=== PATIENT | male | born 1930 | race Caucasian/White ===

== ENCOUNTER 2019-01-06 08:51 | Emergency (ER) | payer MEDICARE, BC ==
--- NOTE | 2019-01-06 09:36 | RAD ---
PORTABLE UPRIGHT FRONTAL CHEST RADIOGRAPH: Date: 01/06/19 COMPARISON: None. HISTORY: Fall. FINDINGS: There is atherosclerotic calcification of the proximal thoracic aorta. No pneumothorax, pleural fluid , focal consolidation, or alveolar edema. Heart and mediastinal contours demonstrate no acute finding s. There is degenerative change involving bilateral acromioclavicular joints. IMPRESSION: No acute findings. POS: [facility]
--- NOTE | 2019-01-06 09:40 | CT ---
Head CT without contrast: 01/06/2019 CLINICAL HISTORY: Fall, trauma, pain. Technique: Axial CT imaging at 5 mm intervals from the vertex through skull base without contrast. COMPARISON: None available FINDINGS: The imaged paranasal sinuses and mastoid air cells are well aerated. There is no displaced calvarial fracture. Mild diffuse cerebral volume loss present. Mild periventricular hypodensity suggests small vessel dis ease. No intracranial hemorrhage, midline shift, or mass effect. IMPRESSION: No intracranial hemorrhage or displaced calvarial fracture.
--- NOTE | 2019-01-06 10:26 | RAD ---
RADIOGRAPH LEFT FOREARM TWO VIEWS: Date: 01-06-19 History: 88-year-old male status post-acute traumatic injury to the forearm from fall. FINDINGS: No evidence of acute displaced fracture of the radius or ulna. Severe DJD at first CMC joint. Probabl e absence of the trapezium. IMPRESSION: 1. No fracture of the radius or ulna identified. 2. Severe osteoarthrosis of the first carpometacarpal joint. 3. 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 POS: [facility]
--- NOTE | 2019-01-06 10:40 | CT ---
CT CERVICAL SPINE WITHOUT CONTRAST: Date: 01/06/19 HISTORY: Fall. Post-traumatic pain. Evaluate for fracture. COMPARISON: None. FINDINGS: No craniocervical dissociation. Lateral masses of C1 and C2 articulate appropriately. There is approp riate articulation of the facets. There is evidence of multilevel facet hypertrophy. Intact odontoid process. Soft tissue neck structures are unremarkable. Probable scarring in the right lung apex. No prevertebr al soft tissue swelling. Varying degrees of central canal stenosis and neural foraminal narrowing on the basis of degenerative change. Cervical spine vertebral body height is maintained. There is no cervical spine fracture. IMPRESSION: No cervical spine fracture. POS: [facility]
== END 2019-01-06 10:30 | disposition home or self-care (01) ==
LOC: ERS 08:51
DX: S51.812A Laceration without foreign body of left forearm, initial encounter (principal); S00.03XA Contusion of scalp, initial encounter; G30.9 Alzheimer's disease, unspecified; F02.80 Dementia in other diseases classified elsewhere, unspecified severity, without behavioral disturbance, psychotic disturbance, mood disturbance, and anxiety; Z79.899 Other long term (current) drug therapy; Z79.82 Long term (current) use of aspirin; W19.XXXA Unspecified fall, initial encounter
CPT/HCPCS: 70450; 71045; 72125; 93005